=== PATIENT | female | born 1975 | race Caucasian/White ===

== ENCOUNTER → 2021-12-25 02:47 | Outpatient (CLI) | payer MEDICARE, SELFPAY ==
[2021-12-25 18:24] LABS: SARS-CoV-2 RNA PCR Negative
== END ==
PROVIDERS: Visit Provider Urology
DX: Z01.812 Encounter for preprocedural laboratory examination (principal); Z20.822 Contact with and (suspected) exposure to COVID-19
CPT/HCPCS: C9803; U0003; U0005

== ENCOUNTER 2021-12-28 00:40 | Day surgery (SDC) | payer MEDICARE, SELFPAY ==
[2021-12-23 12:09] VITALS: BMI 42.9
--- NOTE | 2021-12-23 12:19 | PC.NURSE ---
Report to the Outpatient Waiting Room, entrance under the green pavilion located off [facility], at time 12:00 on date 12/28/21. OR Time: 2:00. - You will be asked a series of questions to screen for COVID 19 for your protection. - A mask is required within the hospital. - No visitors are allowed at this time. Preoperative COVID Testing Requirements: COVID TEST 12/25 AT 9:30 No COVID Test needed if: (proof is required; if not received patient will have Rapid Test prior to entry) - Patient has received COVID Vaccine at least 14 days prior to procedure date or - Patient has positive COVID test result within last 90 days of surgery date. COVID Test needed if above criteria is not met If not COVID vaccinated a COVID test must be conducted within 72 hours of surgery and patient is asked to isolate self from time of testing until procedure. You will go to the [facility] for your COVID testing. The [facility] is located at the corner of [address] [facility]. You will only be called if COVID results are positive and your surgeon may reschedule your elective surgery date. Patients may have clear liquids (water, carbonated beverages, clear teas, apple juice) until 3 hours prior to surgery with a maximum of 20 ounces. - No food from midnight until time of surgery Take the following medications with a SIP of water the morning of surgery: FLEXERIL, CYMBALTA, GABAPENTIN, LAMICTAL, TRILEPTA, TOPIRAMATE Medications to discontinue per physician: VITAMINS/SUPPLEMENTS Date to take last dose: 12/24/21 Please no make-up, nail thai, hairspray, perfume, deodorant, or body powder the day of surgery. No jewelry (including any body piercings) or valuables the day of surgery, leave them at home. Please take a shower or bath the night before, or the morning of, surgery with an antibacterial soap. Wear comfortable, loose fitting clothing. - Jewelry must be removed prior to entering the operating room. Rings and piercings that are not removed may be cut off. - The hospital will not accept responsibility for valuables. - Please leave all valuables, including medications, at home the day of surgery. If you are going home after surgery, a licensed locomotive driver must drive you home. - NO public transportation without another adult. - We recommend that an adult stay with you for 24 hours following discharge. - We also recommend that you do not drive, make important decision, drink alcoholic beverages, or take any drugs that were not prescribed by your health care provider for at least 24 hours after your discharge time. Follow any additional instructions given to you from your surgeon. Telephone instructions given to CHELY MURCIA and asked if any additional questions and then verbalized understanding. Patient advised to call surgeon office or pre surgery nurse liaison [phone] if any additional questions.
--- NOTE | 2021-12-25 11:46 | PM.IMHP ---
H&P: HPI History of Present Illness Date/Time: 12/25/21 11:46 46-year-old female with urge urinary incontinence. She underwent a InterStim trial. She had greater than 50% improvement in symptoms. She is here for full implantation Chief Complaint: urge incontinence Review of Systems Review of Systems: All systems reviewed & are unremarkable except as noted in HPI and below PMFSH Social History Social History Smoking status: Never smoker Alcohol intake: never Substance use: never Substance use type: does not use Spiritual care concerns: No Meds Home Medications and Allergies Home Medications Medication Instructions Recorded Confirmed Type L. acidophilus-L. rhamnosus 1 cap PO DAILY 12/23/21 12/23/21 History [Probiotic] acetazolamide [Diamox] 250 mg PO TID 12/23/21 12/23/21 History cyclobenzaprine [Flexeril] 10 mg PO BID 12/23/21 12/23/21 History diclofenac sodium 75 mg PO DAILY 12/23/21 12/23/21 History duloxetine [Cymbalta] 60 mg PO BID 12/23/21 12/23/21 History gabapentin 800 mg PO QID 12/23/21 12/23/21 History lamotrigine [Lamictal] 100 mg PO DAILY 12/23/21 12/23/21 History metformin 500 mg PO BID 12/23/21 12/23/21 History modafinil 100 mg PO QAM 12/23/21 12/23/21 History oxcarbazepine [Trileptal] 150 mg PO DAILY 12/23/21 12/23/21 History pantoprazole [Protonix] 40 mg PO BID 12/23/21 12/23/21 History topiramate 100 mg PO BID 12/23/21 12/23/21 History tramadol 50 mg PO BID PRN 12/23/21 12/23/21 History trazodone 50 mg PO HS 12/23/21 12/23/21 History Allergies Allergy/AdvReac Type Severity Reaction Status Date / Time hydromorphone [From Dilaudid] Allergy Severe Anaphylaxis Verified 12/23/21 12:02 Exam Narrative: no acute distress normal breathing alert and oriented x3 Assessment and Plan Assessment and plan (1) Urge incontinence: Code(s): N39.41 - Urge incontinence Status: Acute Additional Plan InterStim/neurostimulator implant
--- NOTE | ~2021-12-28 | XR_ITS ---
EXAMINATION: FLUORO NEUROSTIM INSERT < 1HR DATE: 12/28/2021 13:30 INDICATION: Neurostimulator implant TECHNIQUE: Frontal and lateral fluoroscopic images of the sacrum were obtained during procedure perfo rmed by Dr. Thompson. The amount of fluoroscopy time used during this procedure was 0.6 minutes. COMPARISON: None. FINDINGS: Distal tip of an Interstim lead extends from posterior to anterior through the left S3 neur al foramen. IMPRESSION: 1. Interstim lead extends through the left S3 neural foramen. See procedure note for further detail. Reviewed, dictated and finalized at location A. AN TRADER IMPRESSION: 1. Interstim lead extends through the left S3 neural foramen. See procedure not e for further detail.
--- NOTE | 2021-12-28 07:21 | WPDHPUPDATE1 ---
History and Physical Update Update Date/Time: 12/28/21 07:21 History and Physical has been reviewed, including an updated exam of the patient. There are NO changes in the patient's condition. Risks, benefits, and alternatives have been discussed and questions answered. Patient agrees to proceed with procedure.
[2021-12-28 10:21] VITALS: BP 145/86; PULSE 90; RESP 16; TEMP 36.4; O2SAT 100
[2021-12-28] MEDS: LACTATED RINGERS 1,000 ML 30 ML IV CONT (11:02)
[2021-12-28 11:17] LABS: Anion Gap 6 mmol/L (8-16); Blood Urea Nitrogen 20 mg/dL (7-17); Calcium 9.2 mg/dL (8.4-10.2); Carbon Dioxide 20 mmol/L (22-30); Chloride 111 mmol/L (98-107); Estimated CRCL calculation 76 ml/min; Estimated Glomerular Filt Rate 59; Glucose 142 mg/dL (65-110); Potassium 4.2 mmol/L (3.4-5.0); Sodium 137 mmol/L (137-145)
--- NOTE | 2021-12-28 12:19 | WPDANESEPPF ---
Anes - Initial Pre Proc Eval Procedure: Operation Date: 12/28/21 12:30 Proposed Procedures p Neurostimulator Implant - Thaddeus Thompson MD Date/Time: 12/28/21 12:19 Surgeon: Thaddeus Thompson MD Pre Op Diagnosis: stress and urge incontinence Patient Data Age: 46 Gender: F Height: 1.63 m Weight: 114.9 kg Last Vital Signs Temp 36.4 C L 12/28/21 10:21 Pulse 90 12/28/21 10:21 Resp 16 12/28/21 10:21 BP 145/86 H 12/28/21 10:21 Pulse Ox 100 12/28/21 10:21 Allergies Allergy/AdvReac Type Severity Reaction Status Date / Time hydromorphone [From Dilaudid] Allergy Severe Anaphylaxis Verified 12/23/21 12:02 Home Medications Medication Instructions Recorded Confirmed Type L. acidophilus-L. rhamnosus 1 cap PO DAILY 12/23/21 12/28/21 History [Probiotic] acetazolamide [Diamox] 250 mg PO TID 12/23/21 12/28/21 History cyclobenzaprine [Flexeril] 10 mg PO BID 12/23/21 12/28/21 History diclofenac sodium 75 mg PO DAILY 12/23/21 12/28/21 History duloxetine [Cymbalta] 60 mg PO BID 12/23/21 12/28/21 History gabapentin 800 mg PO QID 12/23/21 12/28/21 History lamotrigine [Lamictal] 100 mg PO DAILY 12/23/21 12/28/21 History metformin 500 mg PO BID 12/23/21 12/28/21 History modafinil 100 mg PO QAM 12/23/21 12/28/21 History oxcarbazepine [Trileptal] 150 mg PO DAILY 12/23/21 12/28/21 History pantoprazole [Protonix] 40 mg PO BID 12/23/21 12/28/21 History topiramate 100 mg PO BID 12/23/21 12/28/21 History tramadol 50 mg PO BID PRN 12/23/21 12/28/21 History trazodone 50 mg PO HS 12/23/21 12/28/21 History Laboratory Tests 12/28/21 10:32 Sodium 137 mmol/L mmol/L (137-145) Potassium 4.2 mmol/L mmol/L (3.4-5.0) Chloride 111 mmol/L H mmol/L (98-107) Carbon Dioxide 20 mmol/L L mmol/L (22-30) Anion Gap 6 mmol/L L mmol/L (8-16) BUN 20 mg/dL H mg/dL (7-17) Creatinine 1.00 mg/dL mg/dL (0.7-1.0) Estim Creat Clear Calc 76 ml/min ml/min Estimated GFR 59 (59 - ) Glucose 142 mg/dL H mg/dL (65-110) Calcium 9.2 mg/dL mg/dL (8.4-10.2) Patient hx anesthesia problems: none Family hx anesthesia problems: none Results Review: All pre-operative results and documents have been reviewed as part of the pre-operative evaluation. [facility] Past Medical History Medical History Arthritis Asthma Fibromyalgia Hx of migraines Not currently working due to disabled status ISSA (obstructive sleep apnea) Social History Social History Smoking status: Never smoker Alcohol intake: never Substance use: never Substance use type: does not use Living arrangements: with family Spiritual care concerns: No Anes - Eval Final PreProcedure Day of Procedure 12/28/21 12:19 Patient weight: morbidly obese Heart: regular rate and rhythm Lungs: clear to auscultation Airway: Mallampati scale class II Neurological: alert and oriented Last oral intake: >/= 8 hours ASA classification: III Emergent: no Anesthetic plan: proceed Anesthesia type and monitoring: general GIVS and standard monitoring Results Review: All pre-operative results and documents have been reviewed as part of the pre-operative evaluation. Informed Consent: The patient's anesthetic plan and its attendant risks and benefits were discussed with the patient/family/POA. Questions were solicited and answers provided to the satisfaction of the patient/family/POA.
[2021-12-28] MEDS: ceFAZolin 2 GM/D5W 50 ML 2 GM/50 ML BAG IVPB (12:42)
[2021-12-28] MEDS: BUPIVACAINE/EPINEPHRINE 0.25% 10 ML VIAL 20 ML INFILTRATE (13:04)
--- NOTE | 2021-12-28 13:21 | W.PM.PROC2 ---
Procedure Note - Detailed Date of Procedure 12/28/21 Pre-op Diagnosis urge incontinence Post-op Diagnosis same Procedure Performed Implantation of sacral lead 13783 Fluoroscopic guidance for needle placement 63427-34 Placement of implantable pulse generator [id number] Complex neurostimulator programming impedance check [id number] Surgeon Thaddeus Thompson MD Anesthesia MAC and local Indications This is a patient with refractory urge urinary incontinence. They have undergone a successful trial of sacral nerve stimulation. They present today for permanent implantation. They understand the risks of bleeding, infection, decreased efficacy, need for revision and battery changes. They agree to proceed Findings See dictated Description of Procedure They were correctly identified and informed consent was obtained. There brought to the operating room. There placed in the prone position. There given appropriate perioperative antibiotics. A time-out performed. I used fluoroscopy to kathy out my sacral landmarks in the AP and the lateral orientation. I anesthetized the skin. I entered the S3 foramen. I monitored the needle with fluoroscopy. I got appropriate Segun and toe response at a low threshold. I made a skin megan. I placed a stylet. I placed the lead introducer sheath. I thinned placed and deployed to my lead. I got appropriate responses again at a low threshold. I marked out the site of the pulse generator. I anesthetized the skin and made that incision. I created a subcutaneous pocket to house the pulse generator. I tunneled the lead towards this pocket. Appropriate connections were made between the lead and the battery. It was placed in the pocket. It was programmed and impedances were checked and found to be normal. I irrigated out all wounds. I ensured hemostasis. I closed the subcutaneous tissues with 2 Vicryl. I closed the skin with 4 0 Vicryl. Glue was applied. There then awakened and transferred to the PACU in stable condition. Implants Sacral neurostimulator Estimated Blood Loss 5 Drains No Packing No Pathology none sent Condition stable Disposition PACU
[2021-12-28 13:22] VITALS: BP 149/87; PULSE 73; RESP 20; O2SAT 98
[2021-12-28] MEDS: traMADol HCL (*CRX) 50 MG TABLET PO (13:49)
[2021-12-28 13:50] VITALS: BP 136/80; PULSE 79; RESP 20
[2021-12-28 14:20] VITALS: BP 139/77; PULSE 70; RESP 20
== END 2021-12-28 14:24 | disposition home or self-care (01) ==
PROVIDERS: Anesthesiology; Visit Provider Urology
PROC: (CPT 64581; principal; 2021-12-28 12:30)
DX: N39.46 Mixed incontinence (principal); M19.90 Unspecified osteoarthritis, unspecified site; J45.909 Unspecified asthma, uncomplicated; M79.7 Fibromyalgia; G47.33 Obstructive sleep apnea (adult) (pediatric); E66.9 Obesity, unspecified; Z68.41 Body mass index [BMI] 40.0-44.9, adult; Z79.84 Long term (current) use of oral hypoglycemic drugs
CPT/HCPCS: 64581; 64590; 36415; 80048; A9270; C1767; C1778; C1787; J0690; J2001; J2250; J2704; J3010; J7120

== ENCOUNTER 2022-09-02 10:06 | Outpatient (CLI) | payer MEDICARE, SELFPAY ==
--- NOTE | ~2022-09-02 | XR_ITS ---
EXAMINATION: XR sacrum coccyx min 2V DATE: 09/02/2022 10:25 INDICATION: Pelvis injury. Sensory urge incontinence. TECHNIQUE: 2 views of the sacrum and coccyx were obtained. COMPARISON: Fluoroscopy 12/28/2021 FINDINGS: Bone alignment is normal. No fracture. Joint spaces are well maintained. There is an electr ode in right S3 neural foramen. IMPRESSION: 1. Electrode in right S3 neural foramen. Reviewed, dictated and finalized at location A.
== END 2022-09-02 10:07 | disposition home or self-care (01) ==
LOC: ANHIMG 10:13
PROVIDERS: Visit Provider Nurse Practitioner Family
DX: N39.41 Urge incontinence (principal)
CPT/HCPCS: 72220

== ENCOUNTER 2025-09-05 13:29 | Outpatient (CLI) | payer OTHER, SELFPAY ==
[2025-09-05 14:10] LABS: Hematocrit 42.0 % (37.0-47.0); Hemoglobin 13.0 g/dL (12.0-15.0); Mean Corpuscular HGB Conc 31.0 g/dl (32-36); Mean Corpuscular Hemoglobin 29.1 pg (26-34); Mean Corpuscular Volume 94.2 fl (80-100); Platelet Count Result 249 k/mm3 (150-375); Red Blood Count 4.46 M/mm3 (4.2-5.4); White Blood Count 7.8 K/mm3 (4.5-10.0)
[2025-09-05 14:26] LABS: Albumin Level 3.9 g/dL (3.5-5.1); Anion Gap 9 mmol/L (4-12); Blood Urea Nitrogen 16 mg/dL (7-17); Calcium 9.4 mg/dL (8.4-10.2); Carbon Dioxide 21 mmol/L (22-30); Chloride 108 mmol/L (98-107); Estimated Glomerular Filt Rate > 60; Glucose 78 mg/dL (65-110); Potassium 4.0 mmol/L (3.4-5.0); Sodium 138 mmol/L (137-145)
[2025-09-05 14:33] LABS: Prealbumin 22.2 mg/dL (17.6-36.0)
[2025-09-05 14:36] LABS: Hemoglobin A1C 5.0 % (<5.7)
[2025-09-05 15:38] LABS: Vitamin B12 > 1000.0 pg/mL (239-931)
[2025-09-05 15:51] LABS: Iron 65 ug/dL (37-170)
[2025-09-10 05:08] LABS: Copper, Serum or Plasma 124 ug/dL (80-158)
[2025-09-10 18:08] LABS: Vit. B1, Whole Blood 183.3 nmol/L (66.5-200.0)
== END 2025-09-05 13:30 | disposition home or self-care (01) ==
PROVIDERS: Visit Provider Surgery Plastic and Reconstructive Surgery
DX: R63.4 Abnormal weight loss (principal)
CPT/HCPCS: 36415; 80048; 82040; 82525; 82607; 82746; 83036; 83540; 84134; 84425; 85027